=== PATIENT | female | born 2000 | race Hispanic/Latino ===

== ENCOUNTER 2024-02-21 08:51 | Day surgery (SDC) | payer OTHER ==
[2024-02-21 09:32] VITALS: BMI 29.2
[2024-02-21] MEDS ORDERED: hydrALAZINE 20 MG/ML VIAL SLOW IVP PRN (10:40)
[2024-02-21] MEDS ORDERED: GUAIFENESIN SF SOLN 200 MG/10 ML UDCUP PO PRN (10:41)
[2024-02-21] MEDS: guaiFENesin 100 MG/5 ML UDCUP PO PRN (11:25)
== END 2024-02-21 12:07 | disposition home health service (06) ==
LOC: CSHLD/OP 08:51
PROVIDERS: ATTEND Family Medicine
DX: O47.1 False labor at or after 37 completed weeks of gestation (principal); R05.9 Cough, unspecified; O99.891 Other specified diseases and conditions complicating pregnancy; O34.211 Maternal care for low transverse scar from previous cesarean delivery; N87.9 Dysplasia of cervix uteri, unspecified; Z3A.38 38 weeks gestation of pregnancy; Z79.899 Other long term (current) drug therapy
CPT/HCPCS: 87081; 87430

== ENCOUNTER 2024-02-25 18:42 | Inpatient (IN) | payer MEDICAID, OTHER ==
[2024-02-25] MEDS ORDERED: Acetaminophen 500 MG TAB PO PRN (21:28)
[2024-02-25] MEDS ORDERED: Famotidine/PF 20 mg/2ml Vial SLOW IVP PRN (21:28)
[2024-02-25] MEDS ORDERED: fentaNYL 50 mcg/mL 1 mL Vial SLOW IVP PRN (21:28)
[2024-02-25] MEDS ORDERED: hydrALAZINE 20 MG/ML VIAL SLOW IVP PRN (21:28)
[2024-02-25] MEDS ORDERED: Misoprostol 200 MCG TAB PR PRN (21:28)
[2024-02-25] MEDS ORDERED: Tranexamic Acid 1,000 MG/10 ML VIAL IVP PRN (21:28)
[2024-02-25] MEDS ORDERED: Bicitra 30 ML UDCUP PO PRN (21:28)
[2024-02-25] MEDS ORDERED: Diphenoxylate HCl/Atropine Tablet PO PRN (21:28)
[2024-02-25] MEDS ORDERED: Methylergonovine 0.2 MG/ML VIAL IM PRN (21:28)
[2024-02-25] MEDS ORDERED: Carboprost 250 MCG/ML AMP IM PRN (21:28)
[2024-02-25] MEDS ORDERED: Promethazine HCl 25 MG/ML VIAL IM PRN (21:28)
[2024-02-25] MEDS ORDERED: Oxytocin 30 units/NS 500 ML 500 ML IV SCH (21:30)
[2024-02-25 21:54] VITALS: BMI 24.2
[2024-02-25 23:09] LABS: Hematocrit 30.9 % (34.9-44.5); Hemoglobin 10.3 g/dL (12.0-15.5); Mean Corpuscular HGB CONC 33.3 g/dL (32.0-36.0); Mean Corpuscular Hemoglobin 27.2 pg (27.0-33.0); Mean Corpuscular Volume 81.7 fL (81.6-98.3); Mean Platelet Volume 9.8 fL (7.4-10.4); Platelet Count 248 10x3/uL (150-450); RBC Distribution Width 13.4 % (11.5-14.5); Red Blood Cell (RBC) Count 3.78 10x6/uL (3.90-5.03); White Blood Cell (WBC) Count 8.2 10x3/uL (3.5-10.5)
[2024-02-25 23:23] LABS: Syphilis Antibody Nonreactive (Nonreactive); Syphilis Antibody Index 0.05 S/CO (<1.00 Non-Reactive)
[2024-02-25 23:25] LABS: HBsAg Index 0.17 S/CO (0-0.99); Hep B Surf Ag - L&D Non-Reactive S/CO (NonReactive)
[2024-02-26] MEDS: Lactated Ringer's 1,000 ML IV SCH (05:53)
[2024-02-26] MEDS: Bicitra 30 ML UDCUP PO PRN (07:24)
[2024-02-26] MEDS: Famotidine/PF 20 mg/2ml Vial SLOW IVP PRN (07:24)
[2024-02-26] MEDS: Ondansetron PF 4 MG/2 ML Vial IVP PRN (07:24)
[2024-02-26] MEDS: CEFAZOLIN 2 GM in Sodium Chloride 0.9% 100 ML IVPB SCH (07:24)
[2024-02-26] MEDS ORDERED: hydrALAZINE 20 MG/ML VIAL SLOW IVP PRN (10:41)
[2024-02-26] MEDS ORDERED: diphenhydrAMINE 25 MG CAP PO PRN (10:41)
[2024-02-26] MEDS ORDERED: Simethicone Chewable 80 MG TAB PO PRN (10:41)
[2024-02-26] MEDS ORDERED: Lanolin Ointment 7 GM TUBE TOP PRN (10:41)
[2024-02-26] MEDS ORDERED: Promethazine HCl 25 MG/ML VIAL IM PRN ×2 (10:41→10:43)
[2024-02-26] MEDS ORDERED: Naloxone HCl 0.4 mg/ml Vial IV PRN (10:43)
[2024-02-26] MEDS ORDERED: Ketorolac Tromethamine 30 MG (1 mL) VIAL IVP PRN (10:43)
[2024-02-26] MEDS ORDERED: fentaNYL 50 mcg/mL 1 mL Vial SLOW IVP PRN (10:43)
[2024-02-26] MEDS ORDERED: Moisturizing Cream (Eucerin) 113 GM JAR TOP PRN (10:43)
[2024-02-26] MEDS ORDERED: diphenhydrAMINE 50 MG/ML VIAL IVP PRN (10:43)
[2024-02-26] MEDS ORDERED: Naloxone HCl 0.4 mg/ml Vial IVP PRN ×2 (10:43)
[2024-02-26] MEDS ORDERED: Ondansetron PF 4 MG/2 ML Vial IVP PRN ×2 (10:43)
[2024-02-26] MEDS ORDERED: Meperidine HCl/PF 25 MG (1 mL) VIAL SLOW IVP PRN (10:43)
[2024-02-26] MEDS ORDERED: Ketorolac Tromethamine 30 MG (1 mL) VIAL IVP SCH (10:45)
[2024-02-26] MEDS ORDERED: Communication Order-Pharmacy FS SCH (10:45)
[2024-02-26] MEDS: Prenatal Vitamin 1 TAB PO SCH (12:00)
[2024-02-26] MEDS: Docusate 100 MG CAP PO SCH ×2 (12:00→21:08)
[2024-02-26] MEDS: Ketorolac Tromethamine 30 MG (1 mL) VIAL IVP SCH (12:28)
[2024-02-26] MEDS: Ferrous Sulfate 325 MG TAB PO SCH ×2 (14:07→21:08)
[2024-02-26] MEDS: ePHEDrine Sulfate 50 MG/10 ML VIAL ONE ×2 (19:27)
[2024-02-26] MEDS: Morphine PF 10 MG/10 ML VIAL ONE (19:27)
[2024-02-26] MEDS: PHENYLEPHRINE-NS 100 MCG/ML 10 ML SYRINGE ONE (19:27)
[2024-02-26] MEDS: Oxytocin 10 UNITS/ML VIAL ONE (19:27)
[2024-02-26] MEDS ORDERED: Meperidine HCl/PF 25 MG (1 mL) VIAL IM PRN (23:00)
[2024-02-27] MEDS: Ondansetron PF 4 MG/2 ML Vial IVP PRN (00:47)
[2024-02-27 03:24] LABS: Hematocrit 28.1 % (34.9-44.5); Hemoglobin 9.5 g/dL (12.0-15.5); Mean Corpuscular HGB CONC 33.8 g/dL (32.0-36.0); Mean Corpuscular Hemoglobin 28.1 pg (27.0-33.0); Mean Corpuscular Volume 83.1 fL (81.6-98.3); Platelet Count 202 10x3/uL (150-450); RBC Distribution Width 13.7 % (11.5-14.5); Red Blood Cell (RBC) Count 3.38 10x6/uL (3.90-5.03); White Blood Cell (WBC) Count 8.5 10x3/uL (3.5-10.5)
[2024-02-27] MEDS: Boostrix 0.5 ML (Tdap) VIAL (>/=7 yrs of age) IM ONE (07:20)
[2024-02-27] MEDS: HYDROcodone/Acetaminophen 5/325 mg Tablet PO PRN (08:46)
[2024-02-27] MEDS: Prenatal Vitamin 1 TAB PO SCH (08:47)
[2024-02-27] MEDS: Ibuprofen 800 MG TAB PO SCH (13:51)
[2024-02-28] MEDS: HYDROcodone/Acetaminophen 5/325 mg Tablet PO PRN (08:26)
[2024-02-29 07:37] VITALS: TEMP 97.9
[2024-02-29 15:55] VITALS: BP 137/56
== END 2024-02-29 17:30 | disposition home or self-care (01) | DRG 788 ==
LOC: CSHLD/OP 18:42 → CSHLD 21:29 → CSHPP 02-26 11:10 → UNDODISIN 02-29 10:04
PROVIDERS: ADMIT Family Medicine; ATTEND Family Medicine
PROC: 10D00Z1 Extraction of Products of Conception, Low, Open Approach (ICD-10-PCS; principal; 2024-02-26)
DX: O34.211 Maternal care for low transverse scar from previous cesarean delivery (principal); Z3A.39 39 weeks gestation of pregnancy; Z37.0 Single live birth; O69.81X0 Labor and delivery complicated by cord around neck, without compression, not applicable or unspecified; O99.613 Diseases of the digestive system complicating pregnancy, third trimester; K80.20 Calculus of gallbladder without cholecystitis without obstruction; O99.891 Other specified diseases and conditions complicating pregnancy; R79.89 Other specified abnormal findings of blood chemistry; R10.11 Right upper quadrant pain; R10.13 Epigastric pain; O99.343 Other mental disorders complicating pregnancy, third trimester; F32.A Depression, unspecified; Z75.8 Other problems related to medical facilities and other health care; Z55.6 Problems related to health literacy
CPT/HCPCS: 36415; 36416; 51702; 76705; 76815; 80053; 81001; 83690; 85025; 85027; 86780; 86850; 86900; 86901; 87086; 87340; 93005; 96360; 96361; 96374; 96375; 99283; 99285; C9113; J1885; J2274; J2405; J2590; J3490; J7120; S0028